=== PATIENT | male | born 1990 | race Two or more races ===

== ENCOUNTER 2025-01-15 16:23 | Emergency (ER) | payer OTHER ==
[~2025-01-15] VITALS: Ht 167.6 cm; Wt 81.6 kg
[2025-01-15] MEDS ORDERED: ORPHENADRINE CITRATE 30 MG/ML AMPUL IM STA (17:28)
[2025-01-15] MEDS ORDERED: DEXAMETHASONE SODIUM PHOSPHATE 4 MG/ML VIAL IM STA (17:28)
[2025-01-15] MEDS ORDERED: KETOROLAC TROMETHAMINE 30 MG VIAL IM STA (17:29)
[2025-01-15] MEDS ORDERED: NORFLEX100MG PO (20:06)
== END 2025-01-15 21:00 | disposition home or self-care (01) ==
LOC: ER 17:28
DX: M54.50 Low back pain, unspecified (principal)